=== PATIENT | male | born 1985 | race African-American/Black ===

== ENCOUNTER 2024-10-22 03:12 | Emergency (ER) | payer MEDICAID, OTHER ==
[~2024-10-22] VITALS: Ht 172.7 cm; Wt 77.0 kg
[2024-10-22 03:28] VITALS: TEMP 37.7; O2SAT 100
[2024-10-22] MEDS: ACETAMINOPHEN 325MG TABLET PO ONE (04:42)
[2024-10-22 05:57] LABS: HEMATOCRIT. 34.9 % (42.0-52.0); HEMOGLOBIN. 11.2 g/dL (14.0-18.0); MEAN PLATELET VOLUME 8.5 fl (7.4-10.4); PLATELET 363 x1000/uL (130-400); RED BLOOD CELL COUNT 4.47 mill/uL (4.7-6.1); RED CELL DISTRIBUTION WIDTH 19.5 % (11.6-14.6); WHITE BLOOD COUNT 17.6 x1000/uL (4.5-11.0)
[2024-10-22 06:12] LABS: CHLORIDE 95 mEq/L (98-107); SODIUM 127 mEq/L (136-145)
[2024-10-22 06:13] LABS: CALCIUM 9.5 mg/dL (8.7-10.4); CARBON DIOXIDE 23 mEq/L (21-32)
[2024-10-22 06:18] LABS: CREATININE 1.2 mg/dL (0.6-1.3)
[2024-10-22 06:44] LABS: DIFFERENTIAL COMMENT 1
[2024-10-22 07:28] LABS: UREA NITROGEN BLOOD 12 mg/dL (9-23)
[2024-10-22 07:30] LABS: BETA HYDROXYBUTYRATE 1.8 mMol/L (0.0-0.3)
[2024-10-22 07:49] LABS: GLUCOSE 422 mg/dL (70-105)
[2024-10-22 08:38] LABS: ANISOCYTOSIS 1+; PLATELET ESTIMATE NORMAL
[2024-10-22] MEDS ORDERED: SODIUM CHLORIDE 0.9% (SEPSIS BOLUS) IV ONE (09:15)
[2024-10-22] MEDS ORDERED: SODIUM CHLORIDE 0.9% 2,310 ML IV SCH (10:00)
[2024-10-22 11:57] VITALS: O2SAT 96
[2024-10-22] MEDS: INSULIN LISPRO 100 UNITS/ML SUBCUT NR (12:00)
[2024-10-22 12:37] VITALS: TEMP 99.9
[2024-10-22] MEDS: VANCOMYCIN 1G PREMIX 200 ML IV NR (12:38)
[2024-10-22] MEDS: PIPERACILLIN/TAZO 3.375G/50ML 50 ML IV NR (12:38)
[2024-10-22 12:39] VITALS: BP 147/77; PULSE 118; RESP 24
[2024-10-22] MEDS: KETOROLAC 15MG/ML VIAL IV ONE (12:39)
[2024-10-22] MEDS ORDERED: CEPH500C2 MT (15:57)
[2024-10-22] MEDS ORDERED: SULF1TAB48 MT (15:57)
[2024-10-22] MEDS ORDERED: INSLIS SUBCUT (23:43)
[2024-10-22] MEDS ORDERED: INSU100I28 SQ (23:43)
== END 2024-10-22 16:22 | disposition home or self-care (01) ==
LOC: EDBD 03:12 → ER 04:10 → CANBEDREQ 16:07 → ER 16:22
DX: R51.9 Headache, unspecified (principal); E11.9 Type 2 diabetes mellitus without complications; Z79.899 Other long term (current) drug therapy; Z20.822 Contact with and (suspected) exposure to COVID-19
CPT/HCPCS: 80048; 82010; 82962; 85025; 87040; 87804 ×2; 36415; 84145; 93005; 96368; 96365; 96372; 96375; 99284; 87426; J1815; J1885; J2543; J3370; Z7610 ×2

== ENCOUNTER 2024-12-07 13:29 | Emergency (ER) | payer OTHER ==
[~2024-12-07] VITALS: Ht 170.2 cm; Wt 71.2 kg
[~2024-12-07 13:29] MED LIST: CEPH500C2 MT; INSLIS SUBCUT; INSU100I28 SQ; SULF1TAB48 MT
[2024-12-07 13:36] VITALS: O2SAT 100
[2024-12-07 13:55] VITALS: BP 148/73; PULSE 100; RESP 18; TEMP 37.1; O2SAT 99
[2024-12-07] MEDS ORDERED: KETOROLAC 30MG/ML VIAL IV STA (16:24)
[2024-12-07] MEDS ORDERED: T3 PO (16:35)
[2024-12-07] MEDS: KETOROLAC 30MG/ML VIAL IM STA (17:00)
== END 2024-12-07 17:01 | disposition home or self-care (01) ==
LOC: ER 13:29
DX: M79.604 Pain in right leg (principal); E11.65 Type 2 diabetes mellitus with hyperglycemia; Z79.4 Long term (current) use of insulin
CPT/HCPCS: 99283; 82962; 96372; J1885